=== PATIENT | female | born 1960 | race African-American/Black ===

== ENCOUNTER → 2017-02-05 | Outpatient (CLI) | payer OTHER | LOC: BC 14:23 | DX: Z12.31 Encounter for screening mammogram for malignant neoplasm of breast (principal) ==

== ENCOUNTER → 2017-02-06 | Outpatient (CLI) | payer OTHER | LOC: ULTRA 07:38 | DX: M79.604 Pain in right leg (principal); M79.89 Other specified soft tissue disorders ==

== ENCOUNTER → 2017-02-20 | Outpatient (CLI) | payer OTHER | LOC: RAD 03:12 | DX: N63 Unspecified lump in breast (principal); R92.8 Other abnormal and inconclusive findings on diagnostic imaging of breast ==

== ENCOUNTER → 2017-12-20 | Outpatient (CLI) | payer OTHER | LOC: ULTRA 06:12 → RAD 06:12 → ULTRA 17:06 | DX: N83.202 Unspecified ovarian cyst, left side (principal); N83.201 Unspecified ovarian cyst, right side ==